=== PATIENT | male | born 1995 | race American Indian/Alaskan Native ===

== ENCOUNTER 2019-02-25 23:21 | Emergency (ER) | payer OTHER ==
--- NOTE | 2019-02-25 23:48 | ED Physician Documentation ---
History of Present Illness - Stated complaint Stated Complaint: SOA/DIARRHEA - Chief complaint Chief Complaint: Fever - History obtained from History obtained from: Patient - History of Present Illness Timing: How many hours ago (15-20 hours ago) Pain level now: 7 Improved by: nothing Worsened by: PO intake (diarrhea) - Additonal information Additional information: c/o "I feel very fatigued", diarrhea, generalized myalgias, nausea but no vomiting. Symptoms started early this morning (approximately 15-20 hours ago). Intermittent dyspnea, mostly with exertion. denies cough, abdominal pain. Review of Systems Constitutional: reports: Fever (in ED but unaware of fever at home), Myalgias, Fatigue. denies: Chills, Sweats Ears: denies: Ear pain Throat: denies: Sore throat Respiratory: reports: Dyspnea (intermittent). denies: Cough GI: reports: Abdominal Pain (lower abdominal cramping only with diarrhea), Nausea, Diarrhea. denies: Vomiting : denies: Dysuria, Frequency Skin: denies: Rash PD PAST MEDICAL HISTORY - Past Medical History Past Medical History: Yes Cardiovascular: None Respiratory: None Neuro: None Endocrine/Autoimmune: None GI: None : None HEENT: None Psych: Depression Musculoskeletal: None Derm: None - Past Surgical History Past Surgical History: Yes HEENT: Tonsil/Adenoidectomy - Present Medications Home Medications: Ambulatory Orders Medication Instructions Recorded Confirmed Escitalopram Oxalate [Lexapro] 20 mg PO DAILY 02/25/19 02/25/19 - Allergies Allergies/Adverse Reactions: Allergies Allergy/AdvReac Type Severity Reaction Status Date / Time No Known Drug Allergies Allergy Verified 02/25/19 23:36 - Social History Does the pt smoke?: No Smoking Status: Never smoker Does the pt drink ETOH?: No Does the pt have substance abuse?: No - Immunizations Immunizations are current?: Yes - POLST Patient has POLST: No PD ED PE NORMAL - Vitals Vital signs reviewed: Yes - General General: Alert and oriented X 3, No acute distress, Well developed/nourished - HEENT HEENT: Moist mucous membranes - Cardiac Cardiac: No murmur - Respiratory Respiratory: No respiratory distress, Clear bilaterally - Abdomen Abdomen: Normal bowel sounds, Soft, Non tender, Non distended - Back Back: No CVA TTP - Derm Derm: Normal color, Warm and dry PD ED PE EXPANDED - Cardiac Cardiac: Tachy, Regular Rhythm Results - Vitals Vitals: Vital Signs - 24 hr 02/25/19 02/26/19 02/26/19 23:31 01:05 01:40 Temperature 38.9 C H 37.7 C H Heart Rate 123 H 112 H 115 H Respiratory 18 16 16 Rate Blood Pressure 125/69 120/70 116/75 O2 Saturation 96 97 95 Oxygen O2 Source Room air - Labs Labs: Laboratory Tests 02/25/19 23:39 Influenza A (Rapid) Negative Influenza B (Rapid) Negative PD MEDICAL DECISION MAKING - ED course Complexity details: re-evaluated patient, considered differential, d/w patient Departure - Departure Disposition: Home, Self Care Clinical Impression: Fever, Diarrhea Condition: Good Instructions: ED Diarrhea Viral, ED Fever Unconf Cause Follow-Up: Chauncey Garnica ARNP [Primary Care Provider] - Discharge Date/Time: 02/26/19 01:49
[2019-02-26] MEDS ORDERED: LOPERAMIDE 2 MG CAPSULE PO STA (00:20)
[2019-02-26] MEDS ORDERED: ACETAMINOPHEN 325 MG TABLET PO STA (00:20)
[2019-02-26 01:41] VITALS: BP 116/75
== END 2019-02-26 01:49 | disposition home or self-care (01) ==
LOC: ED 23:21
DX: R50.9 Fever, unspecified (principal); R19.7 Diarrhea, unspecified; R11.0 Nausea; R53.83 Other fatigue
CPT/HCPCS: 87275; 87276; 99283; 99284; A9270

== ENCOUNTER 2019-10-15 15:18 | Emergency (ER) | payer OTHER ==
[2019-10-15] MEDS ORDERED: KETOROLAC 60 MG/2 ML VIAL IM STA (16:32)
--- NOTE | 2019-10-15 16:56 | ED Physician Documentation ---
History of Present Illness - Stated complaint Stated Complaint: BACK PX - Chief complaint Chief Complaint: Back Pain - Additonal information Additional information: Sent to the emergency department with 1 week of right low back pain. He denies any falls or trauma. He has not taken any [id number] medications. He denies that the pain travels to his leg. He has no urinary symptoms or hematuria. He does report a history of low back pain many years ago after moving heavy equipment. At that time he was diagnosed with low back strain and was prescribed ibuprofen. He states that that helped his symptoms. He denies fevers, saddle anesthesia any history of cancer intravenous drug use. He has a normal gait here in the emergency department Review of Systems Constitutional: denies: Fever, Chills Eyes: denies: Loss of vision Ears: reports: Reviewed and negative Nose: reports: Reviewed and negative Throat: reports: Reviewed and negative Cardiac: reports: Reviewed and negative Respiratory: reports: Reviewed and negative GI: reports: Reviewed and negative : reports: Reviewed and negative Skin: reports: Reviewed and negative Musculoskeletal: reports: Back pain. denies: Joint pain, Extremity swelling Neurologic: denies: Generalized weakness, Numbness, Syncope, Seizure, Confused, Headache, Head injury PD PAST MEDICAL HISTORY - Past Medical History Past Medical History: Yes Cardiovascular: None Respiratory: None Neuro: None Endocrine/Autoimmune: None GI: None : None HEENT: None Psych: Depression Musculoskeletal: None Derm: None - Past Surgical History Past Surgical History: Yes HEENT: Tonsil/Adenoidectomy - Present Medications Home Medications: Ambulatory Orders Medication Instructions Recorded Confirmed Escitalopram Oxalate [Lexapro] 20 mg PO DAILY 02/25/19 02/25/19 Ibuprofen [Motrin] 600 mg PO Q6H PRN #30 tab 10/15/19 - Allergies Allergies/Adverse Reactions: Allergies Allergy/AdvReac Type Severity Reaction Status Date / Time No Known Drug Allergies Allergy Verified 10/15/19 15:26 - Social History Does the pt smoke?: No Smoking Status: Never smoker Does the pt drink ETOH?: No Does the pt have substance abuse?: No - Immunizations Immunizations are current?: Yes - POLST Patient has POLST: No PD ED PE NORMAL - General General: Alert and oriented X 3, No acute distress, Well developed/nourished, Other (obese) - HEENT HEENT: Atraumatic, PERRL, EOMI - Neck Neck: Supple, no meningeal sign, No adenopathy - Cardiac Cardiac: RRR, No murmur - Respiratory Respiratory: No respiratory distress, Clear bilaterally - Abdomen Abdomen: Normal bowel sounds, Soft - Back Back: No CVA TTP, No spinal TTP, Other (Mild right paraspinous tenderness to palpation. Negative straight leg exam on right leg. Full range of motion of lower lumbar spine. Normal gait. 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 He has a him a history of similar in the past. He has no red flags on exam. Patient was given Toradol in the ED with some mild relief of pain. Will recommend that he take ibuprofen at home for the next 4 to 5 days. Also advised moderate weight loss as he is markedly obese. He is to schedule follow- up with his primary care doctor in the long-term he may benefit from physical therapy Departure - Departure Disposition: 01 Home, Self Care Clinical Impression: Low back pain Qualifiers: Chronicity: acute Back pain laterality: right Sciatica presence: without sciatica Qualified Code(s): M54.5 - Low back pain Condition: Stable Record reviewed to determine appropriate education?: Yes Instructions: ED Sprain Strain Lumbar Prescriptions: Ibuprofen [Motrin] 600 mg PO Q6H PRN #30 tab PRN Reason: Pain Comments: Prateek I think that you have strained your lower back. I would like you to take the ibuprofen 2-3 times a day for pain. I also recommend gentle stretching. Please schedule close follow-up with your primary care doctor. You may benefit from physical therapy for your back pain. Develop numbness or tingling between your legs have any fevers leg weakness or feel that your symptoms are not improving you may return to the emergency department
[2019-10-15 17:03] VITALS: BP 114/79
== END 2019-10-15 17:03 | disposition home or self-care (01) ==
LOC: ED 15:18
DX: M54.5 Low back pain (principal)
CPT/HCPCS: 96372; 99283

== ENCOUNTER 2023-06-02 23:08 | Outpatient (CLI) | payer OTHER ==
--- NOTE | 2023-06-03 21:25 | Ultrasound Report ---
PROCEDURE: Abdomen Limited INDICATIONS: NAUSEA TECHNIQUE: Real-time focused scanning was performed of the abdomen, with image documentation. COMPARISONS: None. FINDINGS: Liver: The liver measures 15.2 cm in length and demonstrates increased echogenicity. Gallbladder: Overall, the gallbladder wall measures less than 3 mm in diameter. Focal wall thickening is noted within the midportion of the gallbladder fundus. No pericholecystic fluid, sonographic Murp hy sign, or stones. Biliary ducts: Intrahepatic bile ducts are non-dilated. Extrahepatic bile duct caliber measures 4.4 mm. Normal is 6-7 mm or less in diameter, or 10 mm or less post-cholecystectomy. Pancreas: The pancreas is not well visualized. Right kidney: Normal in size and echotexture. Right kidney measures 11.8 cm long. No hydronephrosis or nephrolithiasis. No solid masses. No complex renal cystic lesions which require follow-up. Aorta: Visualized aorta is normal in caliber at less than 3 cm. IVC: Intrahepatic inferior vena cava is patent. Miscellaneous: No free abdominal fluid. IMPRESSION: 1. Increased hepatic echogenicity suggesting hepatic steatosis although other sources of hepatocellul ar dysfunction cannot be excluded. 2. Focal gallbladder wall thickening as described above. The significance of this finding is unclear. No ring down artifact is visualized to suggest adenomyomatosis. There are no ancillary findings to s uggest acute cholecystitis such as cholelithiasis, sonographic Villeda sign, or pericholecystic fluid. However, early acute cholecystitis cannot be excluded. Please correlate with laboratory values. Salo tionally, consider 3 month follow-up to ensure stability or resolution of this finding. Reviewed by: Juana Suárez MD on 06/03/2023 9:24 PM PDT Approved by: Juana Suárez MD on 06/03/2023 9:24 PM PDT Station ID: [id number]
== END 2023-06-02 23:09 | disposition home or self-care (01) ==
LOC: DI 23:08
PROVIDERS: ATTEND Physician Assistant
DX: R11.0 Nausea (principal)

== ENCOUNTER 2023-07-11 13:12 | Outpatient (CLI) | payer OTHER ==
[2023-07-11] MEDS ORDERED: DIATRIZOATE MEGLU/DIATRIZO SOD 30 ML BOTTLE PO ONE (13:29)
[2023-07-11] MEDS ORDERED: iohexoL-300 100 ML VIAL ONE (13:29)
[2023-07-11] MEDS: DIATRIZOATE MEGLU/DIATRIZO SOD 30 ML BOTTLE PO ONE (14:59)
[2023-07-11] MEDS: iohexoL-300 100 ML VIAL IVP ONE (14:59)
--- NOTE | 2023-07-11 16:54 | CT Report ---
PROCEDURE: Abdomen/Pelvis W INDICATIONS: NAUSEA, WEIGHT LOSS CONTRAST: Omni 300 100ml TECHNIQUE: After the administration of intravenous contrast, a CT scan of the abdomen and pelvis was performed. Images were recorded and evaluated at appropriate window settings. Reformats: coronal and sagittal. F or radiation dose reduction, the following was used: automated exposure control, adjustment of mA and /or kV according to patient size. COMPARISON: 06/02/2023. FINDINGS: Image quality: Diagnostic. Lower chest: Unremarkable. Liver: Hepatic steatosis. Gallbladder: No radiopaque stones or wall thickening. Biliary tree: No intrahepatic or extrahepatic dilation, accounting for age. Spleen: No splenomegaly. Pancreas: No pancreatic ductal dilation. Adrenals: No adrenal nodule. Kidneys and ureters: No hydronephrosis. No renal cystic lesion which requires follow up. No solid mas s. Stomach, bowel and peritoneum: No gastric or small bowel dilation. No abnormal wall thickening. No pa thologic free fluid. Diverticulosis without evidence of diverticulitis. Fecal debris within the small bowel. Lymph nodes: No central or retroperitoneal adenopathy. Vessels: No infrarenal aortic aneurysm. Patent portal vein. PELVIS Reproductive organs: Unremarkable. Bladder: No abnormal wall thickening, accounting for underdistention. Pelvic lymph nodes: No pelvic adenopathy by size criteria. Bones: No aggressive osseous abnormality. Mild bilateral sacroiliitis. Other: No significant ventral or inguinal hernia. IMPRESSION: Fecal debris within the small bowel, which may indicate small intestinal bacterial overgrowth versus slow intestinal transit. Colonic diverticulosis without evidence of diverticulitis. Hepatic steatosis. Sacroiliitis, which has associations with other medical conditions such as inflammatory bowel disease . Reviewed by: Jonh Lozano MD on 07/11/2023 4:53 PM PDT Approved by: Jonh Lozano MD on 07/11/2023 4:53 PM PDT Station ID: [id number]
== END 2023-07-11 13:13 | disposition home or self-care (01) ==
LOC: DI 13:12
PROVIDERS: ATTEND Internal Medicine
DX: F32.A Depression, unspecified (principal); K57.30 Diverticulosis of large intestine without perforation or abscess without bleeding; K76.0 Fatty (change of) liver, not elsewhere classified; M46.1 Sacroiliitis, not elsewhere classified
CPT/HCPCS: 74177; Q9963; Q9967